=== PATIENT | male | born 1985 | race Caucasian/White ===

== ENCOUNTER 2017-02-01 11:19 | Emergency (ER) | payer MEDICAID ==
[2017-02-01 11:50] VITALS: BP 98/57
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
== END 2017-02-01 12:22 | disposition home or self-care (01) ==
LOC: UCEAST 11:19
DX: S50.912A Unspecified superficial injury of left forearm, initial encounter (principal); X58.XXXA Exposure to other specified factors, initial encounter; Y93.9 Activity, unspecified; Y92.9 Unspecified place or not applicable; G43.909 Migraine, unspecified, not intractable, without status migrainosus; Z88.1 Allergy status to other antibiotic agents; Z88.5 Allergy status to narcotic agent
CPT/HCPCS: 99212; G0463

== ENCOUNTER 2017-06-03 08:49 | Emergency (ER) | payer MEDICAID ==
[2017-06-03 09:08] VITALS: BP 117/80
[2017-06-03] MEDS ORDERED: NS 0.9% 1000 ML* 1,000 ML IV ONE (09:52)
[2017-06-03] MEDS ORDERED: Ondansetron INJ* 2 MG/ML VIAL IV ONE (09:52)
[2017-06-03 11:32] LABS: Hematocrit 45 % (42-52); Hemoglobin 15.2 g/dl (14.0-18.0); Mean Corpuscular HGB Conc 34 g/dl (31-36); Mean Corpuscular Hemoglobin 29 pg (27-31); Mean Corpuscular Volume 85 fL (80-94); Mean Platelet Volume 7 um3 (7.4-10.4); Red Blood Count 5.31 10^6/ul (4.0-5.4); Red Cell Distribution Width 14 % (10.5-15); White Blood Count 13.2 10^3/ul (3.5-10.8)
[2017-06-03 11:38] LABS: Add Diff/Slide Review? Slide Review Added; Comments Flag Yes
[2017-06-03 11:47] LABS: Albumin 4.9 g/dL (3.2-5.2); BUN/Creatinine Ratio 22.2 (8-20); C Reactive Protein 5.47 mg/L (< 5.00); Calcium 10.7 mg/dL (8.6-10.3); EGFR African American 144.9 (>60); EGFR Non-African American 112.7 (>60); Globulin 3.7 g/dL (2-4); Potassium 3.7 mmol/L (3.5-5.0); Total Bilirubin 0.3 mg/dL (0.2-1.0); Total Protein 8.6 g/dL (6.4-8.9)
[2017-06-03] MEDS ORDERED: Iohexol 300* (CONTRAST) 10 ML SDV IV ONE (12:16)
[2017-06-03 12:32] LABS: Syphilis Index < 0.1 Index
[2017-06-03 13:10] LABS: Urine Bacteria 1+ (Absent); Urine Bilirubin Negative (Negative); Urine Glucose Negative (Negative); Urine Nitrite Positive (Negative)
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
--- NOTE | 2017-06-03 16:58 | RAD ---
INDICATION: Abdominal pain elevated white blood count. COMPARISON: There are no prior studies available for comparison. TECHNIQUE: A CT scan of the abdomen and pelvis was performed with intravenous and oral contrast following intravenous injection of 109 ml of Omnipaque 300 nonionic contrast. Contiguous axial sections were obtained from the lung bases through the symphysis pubis. Images were reconstructed in the coronal and sagittal planes. FINDINGS: There are small dependent infiltrates in both lower lobes. No pleural effusion is present. The liver and spleen are normal in size without significant focal abnormality. The gallbladder is dilated. There are gallstones present. No pericholecystic fluid is noted. The pancreas appears to be within normal limits. The adrenal glands appear to be within normal limits. There are multiple focal areas of cortical thinning and scarring in both kidneys although more prominent in the right kidney. No renal calculi or hydronephrosis is seen. The urinary bladder is abnormal in shape and displaced toward the right side with diffuse wall thickening likely representing a neurogenic bladder. The aorta appears slightly small in caliber although widely patent. No significant enlarged retroperitoneal lymph nodes are seen. The stomach and small bowel are nondistended. There is distention of the rectosigmoid colon which may represent a chronic finding. The appendix is within normal limits. There is no evidence for diverticulitis or colitis. No free intraperitoneal air or fluid is seen. The patient is status post posterior spinal fusion of the visualized portion of the dorsal and lumbar spine with pedicle screws and metallic rods. The pelvis appears dysplastic. IMPRESSION: 1. NORMAL EXAMINATION OF THE APPENDIX. 2. DILATED GALLBLADDER WITH GALLSTONES SUGGESTING THE POSSIBILITY OF CHOLECYSTITIS. RECOMMEND A RIGHT UPPER QUADRANT ULTRASOUND. 3. BILATERAL CORTICAL RENAL SCARRING. 4. ENLARGED THICK-WALLED URINARY BLADDER SUGGESTIVE OF THE NEUROGENIC BLADDER, RECOMMEND CLINICAL CORRELATION. THE POSSIBILITY OF CYSTITIS CANNOT BE EXCLUDED.
[2017-06-03] MEDS ORDERED: Ketorolac INJ* 30 MG/ML 1 ML VIAL IV PUSH ONE (17:11)
--- NOTE | 2017-06-03 18:05 | RAD ---
INDICATION: Cholelithiasis seen on CT. COMPARISON: Comparison is made with a prior CT of the abdomen and pelvis of the same date. TECHNIQUE: Multiple real-time images of the right upper quadrant were obtained. FINDINGS: There are multiple gallstones present. There is biliary sludge and the gallbladder is distended. No gallbladder wall thickening or pericholecystic fluid is present. No positive sonographic Hern[place] sign was present. No intra or extrahepatic ductal distention is present. The common bile duct measured 0.3 cm in diameter. The liver is normal in size without significant focal abnormality. The pancreas is partially obscured by overlying bowel gas. The right kidney is lobulated with multiple focal areas of cortical thinning and scarring. No hydronephrosis is seen. IMPRESSION: 1. CHOLELITHIASIS WITHOUT EVIDENCE FOR ACUTE CHOLECYSTITIS. 2. MULTIPLE AREAS OF CORTICAL THINNING AND SCARRING IN THE RIGHT KIDNEY.
[2017-06-03] MEDS ORDERED: Sulfamethox/Trimethoprim DS 800/160* TAB PO ONE (18:50)
--- NOTE | 2017-06-03 18:54 | PN ---
Progress Note - Progress Note Date of Service: 06/03/17 Note: patient signed out by Yudith pending u/s u/s shows: IMPRESSION: 1. CHOLELITHIASIS WITHOUT EVIDENCE FOR ACUTE CHOLECYSTITIS. 2. MULTIPLE AREAS OF CORTICAL THINNING AND SCARRING IN THE RIGHT KIDNEY. talked with dr garcia at 18:45 and said that likely uti causing symptoms not gallstones. does not need follow up with surgery at this time. Will treat for uti as has leuko in urine. patient is catheterized four times a day. Will treat with bactrim Diagnosis: UTI disposition: home condition: stable
--- NOTE | 2017-06-06 20:31 | PN ---
Progress Note - Progress Note Date of Service: 06/03/17 Note: Urine culture grew E. Coli Patient placed on Bactrim prior to discharge Bactrim likely sensitive to organism. Nothing further at this time. Will call with change after obtaining sensitivities. Jenelle Pérez PA-C
== END 2017-06-03 19:47 | disposition home or self-care (01) ==
LOC: ED 08:49
DX: T74.21XA Adult sexual abuse, confirmed, initial encounter (principal); R11.2 Nausea with vomiting, unspecified; R10.31 Right lower quadrant pain
CPT/HCPCS: 36415; 74177; 76705; 80053; 81003; 81015; 83605; 83690; 85025; 86140; 86592; 86703; 86706; 86803; 87077; 87086; 87186; 87340; 87491; 87591; 96374; 96375; 99284; A9270-GY; J1885; J2405; Q9967